=== PATIENT | male | born 1985 | race Caucasian/White ===

== ENCOUNTER 2017-10-16 22:07 | Emergency (ER) | payer SELFPAY ==
[~2017-10-16] VITALS: Ht 177.8 cm; Wt 84.0 kg
[~2017-10-16 22:07] MED LIST: LORTAB5 OR; NEXIUM20 MG OR; NO MEDS
[2017-10-16 22:57] LABS: HEMATOCRIT 40.7 % (39.0-50.0); HEMOGLOBIN 13.6 g/dl (14.0-18.0); IMMATURE GRANULOCYTES 0.6 % (0.0-1.0); MEAN CELL VOLUME 90.4 fL CALC (80.0-100.0); MEAN CORPUSCULAR HGB 30.2 pG CALC (26.0-32.0); MEAN CORPUSCULAR HGB CONC 33.4 g/L CALC (32.0-36.0); NEUT# 17.23 thou/uL (1.82-7.42); RED BLOOD COUNT 4.5 mill/uL (4.70-6.10); RED CELL DISTRI WIDTH 13.1 % (11.5-15.5)
[2017-10-17] MEDS ORDERED: TRAMADOL HCL50 MG PO (00:37)
[2017-10-17] MEDS ORDERED: DOXYCYCL HYC100 MG PO (00:37)
[2017-10-17 00:52] VITALS: BP 107/52
== END 2017-10-17 00:50 | disposition home or self-care (01) | DRG 603 ==
LOC: ED 22:07
PROVIDERS: Family Medicine
PROC: 0H9GXZZ Drainage of Left Hand Skin, External Approach (ICD-10-PCS; principal; 2017-10-17)
PROC: 0H9CXZZ Drainage of Left Upper Arm Skin, External Approach (ICD-10-PCS; 2017-10-17)
DX: L03.114 Cellulitis of left upper limb (principal); R22.32 Localized swelling, mass and lump, left upper limb; R50.9 Fever, unspecified

== ENCOUNTER 2023-03-22 09:07 | Emergency (ER) | payer OTHER ==
[~2023-03-22] VITALS: Ht 177.8 cm; Wt 79.4 kg
[~2023-03-22 09:07] MED LIST changes: +DOXYCYCL HYC100 MG PO; +TRAMADOL HCL50 MG PO
[2023-03-22 10:04] VITALS: BP 111/71
[2023-03-22 11:23] LABS: ALBUMIN 4.2 g/dL (3.2-5.0); ALKALINE PHOSPHATASE 109 u/l (38-126); BILIRUBIN, TOTAL 0.2 mg/dL (0.2-1.3); BUN 22 mg/dL (9-20); BUN/CREATININE RATIO 19 (12-20 (CALC)); CHLORIDE 101 mmol/l (95-108); CREATININE 1.1 mg/dL (0.7-1.3); GFR FOR AFR.AMER. > 60 ML/MIN (>=60 (CALC)); GFR OTHER RACES > 60 ML/MIN (>=60 (CALC)); POTASSIUM 4.4 mmol/l (3.5-5.1); SGOT/AST 35 u/l (17-59); SODIUM 141 mmol/l (137-146); TOTAL PROTEIN 8.3 g/dL (6.3-8.2)
[2023-03-22 11:25] LABS: ANION GAP 13 (6-22 (CALC)); CARBON DIOXIDE 31 mmol/l (22-30)
[2023-03-22 11:26] LABS: C-REACTIVE PROTEIN 3.5 mg/dL (0-0.9)
[2023-03-22 11:30] LABS: BASO% 0.8 % (0-3); EOS% 0.8 % (0-8); HEMOGLOBIN 15.4 g/dl (14.0-18.0); IMMATURE GRANULOCYTES 0.1 % (0.0-5.0); LYMPH% 38.4 % (15-41); MEAN CELL VOLUME 88.4 fL CALC (80.0-100.0); MEAN CORPUSCULAR HGB 28.8 pG CALC (26.0-32.0); MEAN CORPUSCULAR HGB CONC 32.6 g/dL CAL (32.0-36.0); MONO% 12.3 % (2-13); NEUT# 3.49 thou/uL (1.82-7.42); NEUT% 47.6 % (42-76); RED BLOOD COUNT 5.35 mill/uL (4.70-6.10)
[2023-03-22 11:37] LABS: HEMATOCRIT 47.3 % (39.0-50.0)
[2023-03-22 11:50] VITALS: BP 100/68
[2023-03-22 12:00] VITALS: BP 90/55
[2023-03-22 13:00] VITALS: BP 112/73
[2023-03-22 14:00] VITALS: BP 112/73
== END 2023-03-22 13:50 | disposition short-term general hospital (02) | DRG 872 ==
LOC: ED 09:07
PROVIDERS: Family Medicine
DX: A41.9 Sepsis, unspecified organism (principal); R65.20 Severe sepsis without septic shock; R21 Rash and other nonspecific skin eruption; F17.210 Nicotine dependence, cigarettes, uncomplicated; F19.90 Other psychoactive substance use, unspecified, uncomplicated